=== PATIENT | female | born 1950 | race Caucasian/White ===

== ENCOUNTER → 2017-10-29 | Day surgery (SDC) | payer MEDICARE ==
[2017-10-28] MEDS: VANCOMYCIN 1000 MG/NS 250 ML (for <70 kg) IV (07:24)
[~2017-10-29] MED LIST: ACETAMINOPHEN 1000 MG/100 ML 100 ML IV; APREPITANT 40 MG CAP; BUPIVACAINE HCL PF 0.25% 30 ML VIAL; BUPIVACAINE HCL PF 0.5% 30 ML VIAL; DEXAMETHASONE SOD PHOS 4 MG/ML VIAL IV; DO NOT ADM ANY ANTICOAGULANT DRUGS; GLYCOPYRROLATE 1 MG/5 ML SYRINGE IV PUSH; KETOROLAC TROMETHAMINE 30 MG/ML (IVP) VIAL IVP; LIDOCAINE HCL 1% PF 5 ML SYRINGE OTHER; METOPROLOL TARTRATE 25 MG TAB PO; MIDAZOLAM HCL 2 MG/2 ML VIAL; MORPHINE SULFATE 4 MG/ML INJ IV PUSH; NEOSTIGMINE 5 MG/5 ML SYRINGE IV PUSH; ONDANSETRON HCL 4 MG/2 ML VIAL IV; ONDANSETRON HCL 4 MG/2 ML VIAL IV PUSH; PHENYLEPH/NS 1000 MCG/10 ML SYR IV; PROPOFOL 200 MG/20 ML AMP IV; ROCURONIUM INJ 50 MG/5 ML SYRINGE IV PUSH; SODIUM CHLORID 0.9% 500 ML IV; SODIUM CHLORIDE 0.9% FLUSH 10 ML FLUSH IV FLUSH; VANCOMYCIN HCL 1000 MG VIAL; ePHEDrine/NS 25 MG/5 ML SYRINGE IV
[2017-10-29] MEDS: CHLORHEXIDINE GLUCONATE 2 % 1 PACK (2 CLOTHS) TOPICAL (05:30)
[2017-10-29] MEDS: CHLORHEXIDINE GLUCONATE 4% SOLN 120 ML BTL TOPICAL (06:00)
[2017-10-29] MEDS: POVIDONE IODINE 5% (ANTISEPSIS KIT) 4 APPLICATIONS EACH NARE (06:00)
[2017-10-29] MEDS: LACTATED RINGER'S 1000 ML IV (06:00)
[2017-10-29] MEDS: ceFAZolin 2 GM PREMIX 50 ML IV (07:38)
[2017-10-29] MEDS: GENTAMICIN SULFATE 80 MG/2 ML VIAL (07:55)
[2017-10-29] MEDS: BUPIVACAINE/EPINEPHRINE 0.25% 50 ML VIAL (08:43)
[2017-10-29] MEDS: *morphine SULFATE 4 MG/ML PERIprocedure ONLY ×2 (09:27→09:42)
[2017-10-29] MEDS: oxyCODONE/ACETAMINOPHEN 5 MG/325 MG TAB PO (11:35)
== END | disposition home or self-care (01) ==
LOC: HSDC 05:28
DX: S42.252A Displaced fracture of greater tuberosity of left humerus, initial encounter for closed fracture (principal); V00.211A Fall from ice-skates, initial encounter; Y93.21 Activity, ice skating; Y92.838 Other recreation area as the place of occurrence of the external cause; Z01.810 Encounter for preprocedural cardiovascular examination
CPT/HCPCS: 01630; 73030; 76000; 93005